=== PATIENT | female | born 1970 | race Two or more races ===

== ENCOUNTER 2019-12-21 08:37 | Inpatient (IN) | payer OTHER ==
[~2019-12-21] VITALS: Ht 154.9 cm; Wt 84.8 kg
[2019-12-21] VITALS (15 sets, daily range): BP systolic 120–150; BP diastolic 62–85
[~2019-12-21 08:37] MED LIST: ceFAZolin sod 2 GM in NS 55 ML IVPB ONE
--- NOTE | 2019-12-21 10:11 | Pre-Procedure Note/Attestation ---
Pre-Procedure Note/Attestation Complete Prior to Procedure Planned Procedure: not applicable Procedure Narrative: Cervical 56 artificial disc replacement Indications for Procedure Pre-Operative Diagnosis: C56 herniation Attestation I attest that I discussed the nature of the procedure; its benefits; risks and complications; and alternatives (and the risks and benefits of such alternatives ), prior to the procedure, with the patient (or the patient's legal construction representative). I attest that, if there was a reasonable possibility of needing a blood transfusion, the patient (or the patient's legal construction representative) was given the [facility] standardized written summary, pursuant to the Nick[place] Blood Safety Act ([place] Health and Safety Code # 1645, as amended). I attest that I re-evaluated the patient just prior to the surgery and that there has been no change in the patient's H&P, except as documented below: Ankush Correa MD Dec 21, 2019 10:11
--- NOTE | 2019-12-21 10:12 | Brief Operative Note ---
Immediate Post Operative Note Operative Note Chief Complaint: neck pain and radiculopathy Pre-op Diagnosis: C56 herniation Procedure: Cervical 56 artificial disc replacement Post-op Diagnosis: same as pre-op Findings: consistent w/pre-op dx studies Surgeon: Sunny Customer Service Voice: Martha Anesthesiologist: Gabriela Anesthesia: general Specimen: none Complications: none Condition: stable Fluids: IVF Estimated Blood Loss: none Drains: none Implant(s) used?: Yes - prodisc c sz 5 Ankush Correa MD Dec 21, 2019 10:12
[2019-12-21] MEDS ORDERED: HYDROmorphone 1mg/ml Carpuject IVP PRN (10:15)
[2019-12-21] MEDS ORDERED: Milk of Magnesia 30ml Ud ORAL PRN (10:15)
[2019-12-21] MEDS ORDERED: Morphine Sulfate 4mg/ml Inj (IV USE ONLY) IV PRN ×2 (10:15)
[2019-12-21] MEDS ORDERED: Chloraseptic Spray 20mL Bottle ORAL PRN (10:15)
[2019-12-21] MEDS ORDERED: HYDROcodone/Acetamin 7.5/325 tab ORAL PRN ×3 (10:15→11:00)
[2019-12-21] MEDS ORDERED: HYDROcodone/Acetamin 5/325 tab ORAL PRN ×2 (10:15→11:00)
[2019-12-21] MEDS ORDERED: Morphine Sulfate 2mg/ml Inj(IV/IM USE ONLY) IV PRN (10:15)
[2019-12-21] MEDS ORDERED: Naloxone 0.4mg/ml Inj IVP PRN (10:15)
[2019-12-21] MEDS ORDERED: Metoclopramide 10mg/2ml Inj IVP PRN (10:15)
[2019-12-21] MEDS ORDERED: LR 1000ml 1,000 ML IVLG SCH (10:58)
[2019-12-21] MEDS ORDERED: Meperidine 25mg/0.5ml Inj (FOR RIGORS ONLY) IV PRN (11:00)
[2019-12-21] MEDS ORDERED: Labetalol 5mg/ml 20ml vial IV PRN (11:00)
[2019-12-21] MEDS ORDERED: DiphenhydrAMINE 50mg/ml Inj IVP PRN (11:00)
[2019-12-21] MEDS ORDERED: Atropine Sulfate 0.4mg/ml inj IVP PRN (11:00)
[2019-12-21] MEDS ORDERED: oxyCODONE HCL/Acetaminophen 5/325mg ORAL PRN (11:00)
[2019-12-21] MEDS ORDERED: Midazolam 2mg/2ml Inj IVP PRN (11:00)
[2019-12-21] MEDS ORDERED: Ketorolac 30mg Inj IV PRN ×2 (11:00)
[2019-12-21] MEDS ORDERED: LORazepam Inj 2mg/ml 1ml IV PRN (11:00)
[2019-12-21] MEDS ORDERED: Acetaminophen (Non formulary) 100 ML IV ONE (11:00)
[2019-12-21] MEDS ORDERED: fentaNYL 100 mcg/2 mL IV PRN (11:00)
--- NOTE | 2019-12-21 11:01 | Anethesia Preoperative Eval ---
Anesthesia Pre-op PMH/ROS General Date of Evaluation: Dec 21, 2019 Time of Evaluation: 12:28 Anesthesiologist: Ovidio ASA Score: ASA 2 Mallampati Score Class I : Soft palate, uvula, fauces, pillars visible Class II: Soft palate, uvula, fauces visible Class III: Soft palate, base of uvula visible Class IV: Only hard plate visible Mallampati Classification: Class II Surgeon: Sunny Diagnosis: Neck Pain Surgical Procedure: ADR C5-6 Family History: no anesthesia problems Allergies: Coded Allergies: No Known Allergies (Unverified , 12/21/19) Medications: see eMAR Patient NPO?: Yes Past Medical History Cardiovascular: Reports: HTN Other: obesity - BMI 37 Anesthesia Pre-op Phys. Exam Physician Exam Last Vital Signs Date Time Temp Pulse Resp B/P (MAP) Pulse Ox O2 Delivery O2 Flow Rate FiO2 12/21/19 09:31 Room Air 12/21/19 09:30 98.1 87 18 140/85 (103) 96 Constitutional: NAD Neurologic: CN 2-12 intact Cardiovascular: RRR Respiratory: CTA Gastrointestinal: S/NT/ND Airway Exam Mallampati Score: Class II MO: full ROM: limited Teeth: missing, intact Anesthesia Pre-op A/P Risk Assessment & Plan Assessment: ASA 2 Plan: GA, SED, GlideScope Status Change Before Surgery: No Pre-Antibiotics Dru Grams Ancef IV Given Within 1 Hr of Incision: Yes Time Given: 13:01 Harry Ochoa MD Dec 21, 2019 11:01
[2019-12-21] MEDS ORDERED: fentaNYL 100 mcg/2 mL IV ONE (11:30)
[2019-12-21] MEDS ORDERED: Lidocaine 1% MPF 10mg/ml 5ml ONE (11:30)
[2019-12-21] MEDS ORDERED: Sodium Chloride 10ml vial INJ ONE (11:30)
[2019-12-21] MEDS ORDERED: Succinylcholine 20mg/ml 10ml vial ONE (12:20)
[2019-12-21] MEDS ORDERED: Sterile Water Irrig 1000ml IRRIG ONE (12:30)
[2019-12-21] MEDS ORDERED: NS Irrig 1000ml ONE (12:30)
[2019-12-21] MEDS ORDERED: propofoL 1,000mg/100ml IV ONE (12:30)
[2019-12-21] MEDS ORDERED: LR 1000ml ONE (12:30)
[2019-12-21] MEDS ORDERED: Thrombin 5000 units TOPIC ONE (12:31)
[2019-12-21] MEDS ORDERED: Bacitracin 50000 Units Vial ONE (12:31)
[2019-12-21] MEDS ORDERED: Gelfoam Size TOPIC ONE (12:31)
--- NOTE | 2019-12-21 12:41 | Immediate Post-Op Evaluation ---
Immediate Post-Op Evalulation Immediate Post-Op Evalulation Procedure: ADR C5-6 Date of Evaluation: Dec 21, 2019 Time of Evaluation: 15:00 IV Fluids: 1000 LR Blood Products: 0 Estimated Blood Loss: 50 Urinary Output: 320 Blood Pressure Systolic: 130 Blood Pressure Diastolic: 68 Pulse Rate: 63 Respiratory Rate: 16 O2 Sat by Pulse Oximetry: 96 Temperature (Fahrenheit): 97.1 Pain Score (1-10): 2 Nausea: No Vomiting: No Complications 0 Patient Status: awake, reacts, patent, extubated, none Hydration Status: adequate Dru Grams Ancef IV Given Within 1 Hr of Incision: Yes Time Given: 13:01 Harry Ochoa MD Dec 21, 2019 12:41
--- NOTE | 2019-12-21 12:42 | 48 Hour Post Anesthesia Eval ---
Post Anesthesia Evaluation Procedure: ADR C5-6 Date of Evaluation: Dec 21, 2019 Time of Evaluation: 17:12 Blood Pressure Systolic: 128 0: 71 Pulse Rate: 64 Respiratory Rate: 18 Temperature (Fahrenheit): 98 O2 Sat by Pulse Oximetry: 97 Airway: patent Nausea: No Vomiting: No Pain Intensity: 2 Hydration Status: adequate Cardiopulmonary Status: Stable Mental Status/LOC: patient returned to baseline Follow-up Care/Observations: 0 Post-Anesthesia Complications: 0 Follow-up care needed: N/A Harry Ochoa MD Dec 21, 2019 12:42
[2019-12-21] MEDS ORDERED: Neostigmine 1mg/ml 10ml Inj ONE (14:13)
[2019-12-21] MEDS ORDERED: Glycopyrrolate 0.2mg/ml 1ml Vial ONE (14:13)
[2019-12-21] MEDS: Hydromorphone 0.5mg/0.5ml inj IVP PRN ×2 (14:57→15:05)
--- NOTE | 2019-12-21 15:34 | Diagnostic Imaging Report ---
XRAY C Spine 2-3v CLINICAL HISTORY: Neck pain. COMPARISON: None FINDINGS: Fluoroscopy independent procedure performed for cervical arthroplasty. 27.9 seconds of fluoroscopy time utilized by the ordering physician. Total cumulative dose is 3.75 mGy and 0.57349 Gy.cm2. Total of 4 spot images are obtained . IMPRESSION: FLUOROSCOPY GUIDED PROCEDURE.
--- NOTE | 2019-12-21 16:15 | NUR ---
NURSE NOTES: patient arrived to the unit s/p surgery in stable condition, pt sleeping but arousable to name calling no s/s of distress on Oxygen 2L via NC, family by the bed side. Received report from post op nurse Klaudia, pt tolerated procedure well , vitals stable WNL, T98 HR 67 RR18 BP 137/67 O2sat 98, dressing on the R neck is clean intact, no s/s of bleeding, pt able to wiggle her toes, bed in low locked position, side rails upX2 call light with in reach. verified belongings with nurse and patient, will continue with plan of care
[2019-12-21] MEDS: Docusate 100mg cap ORAL SCH (18:45)
[2019-12-21] MEDS: NS w/KCl 20mEq 1000ml 1,000 ML IV SCH (18:45)
--- NOTE | 2019-12-21 19:31 | NUR ---
HAND-OFF: Report given to Star LOGAN, pt stable .
--- NOTE | 2019-12-21 19:32 | NUR ---
Received pt awake,a&o x4,and verbal. pt is on nc 3L. No sob, fever,cough and pain at the moment. Iv is intact and asymptomatic. Bed in the lower position, locked and call light within reach. we will keep monitoring the pt. Addendum: 12/22/19 at 0715 by DEIDRE GAMBLE RN Discard the note above
--- NOTE | 2019-12-21 19:33 | NUR ---
NURSE NOTES: Received pt awake,a&o x4,and verbal. pt is on nc 3L. No sob, fever,cough and pain at the moment. Iv is intact and asymptomatic. Bed in the lower position, locked and call light within reach. we will keep monitoring the pt.
[2019-12-21] MEDS: ceFAZolin sod 1 GM in D5W 55 ML IV SCH (21:24)
[2019-12-22] VITALS: BP 132/66
--- NOTE | 2019-12-22 | Operative Note - Dictated ---
DATE OF OPERATION: 12/21/2019 SURGEON: Ankush Correa MD, Orthopaedic Spine Surgeon. FULL FASHIONED GARMENT KNITTER: IAN Marc. PREOPERATIVE DIAGNOSES: 1. Intractable neck pain. 2. Radiculopathy. 3. Herniation, C5-C6. 4. Neuroforaminal stenosis, C5-C6. 5. Stenosis. POSTOPERATIVE DIAGNOSES: 1. Intractable neck pain. 2. Radiculopathy. 3. Herniation, C5-C6. 4. Neuroforaminal stenosis, C5-C6. 5. Stenosis. PROCEDURE PERFORMED: 1. Anterior cervical diskectomy and artificial disc replacement of C5-C6 using a Synthes ProDisc C size 5 height. 2. Use of intraoperative microscope. 3. Motor-evoked potential monitoring. 4. Somatosensory-evoked potential monitoring. 5. Supervision and interpretation of fluoroscopy. COMPLICATIONS: None. ANESTHESIA: General. ESTIMATED BLOOD LOSS: Less than 100 mL. INDICATIONS FOR SURGERY: This patient is a 49-year-old female who has a history of . As of result of this, Priscila sustained intractable neck pain, radiculopathy, herniation at C5-C6, neuroforaminal stenosis at C5-C6, and stenosis. We tried a course of conservative management, but despite this course, there was still a significant component of persistent, recalcitrant neck pain and arm pain. The MRI demonstrated significant neuroforaminal compromise secondary to disc herniations at C5-C6. We had a long discussion with Priscila regarding the risks and benefits of surgery. Our discussion included, but was not limited to nonoperative management, chiropractic management, another epidural steroid injection as well definitive management in the form of surgery. We recommended an anterior cervical diskectomy and artificial disc replacement of C5-C6 as final definitive management. We reviewed the risks and benefits of surgery with Priscila. Our discussion included a comprehensive review of the clinical issues and the nature of the clinical decision. We reviewed the alternatives, including doing nothing. Priscila elected to proceed accordingly with anterior cervical diskectomy and artificial disc replacement of C5-C6. We had a long discussion regarding the risks, alternatives, and benefits of surgery. Our description of the risks included a discussion in person as well as a signed consent which detailed all pertinent risks from the procedure itself. Briefly, our discussion included but was not limited to infection, bleeding, pseudarthrosis, spinal cord injury, neurovascular injury, dural tear, CSF leak, neuropathy, paralysis, permanent weakness/drop foot/drop arm, paresthesias, blindness, palsy, and weakness. The patient understood there may be a need for a revision surgery or additional procedures. Approach-related complications including dysphonia, dysphagia, blindness, permanent vocal cord and neural injury, hematoma, swallowing and breathing difficulty. Medical complications were reviewed including liver, kidney, shock, cardiopulmonary failure, anesthesia complications including , swelling, damage to the musculature, larynx/voice injury or loss, esophagus/throat, trachea, blood vessels and muscles/muscular sprain and lungs/pneumothorax during this surgical procedure; injury to deeper structures may be temporary or permanent. After this review of risks, Priscila understood these and elected to proceed. A written and verbal consent was given. We discussed the pros and cons of all the alternatives. We discussed the uncertainties associated with the decision. Afterwards, I assessed Priscila's understanding and explored their preferences. All questions were answered and no guarantees were given. Medical clearance was obtained prior to surgery. INTRAOPERATIVE FINDINGS: C5-C6; the disc itself was soft and spongy. It was not dehydrated, dry, or crumbled. Upon inspection of the posterior longitudinal ligament, there was a radial tear approximately 10 degrees cephalad to caudad. I probed this tear and through which, I noted a tear along with disc herniation. This was a fragment of nucleus pulposus tissue, which was clearly encroaching the neural foramina and was posteriorly. This was resected with a combination of Deckers, Microsect curettes, Kerrison-1 and Kerrison-2 rongeurs until it allowed for complete and thorough decompression of the spinal cord and thecal sac as well as neural foraminal elements bilaterally. There was a significant degenerative neural foraminal stenosis, which was right-sided more than left-sided. DESCRIPTION OF PROCEDURE: Under the benefit of general endotracheal anesthesia and with the assistance of the entire operative team, the patient was moved from the rney onto the operative table in the supine position. The head was secured and carefully positioned appropriately. Bilateral arms were secured with Gel Pads and foam and all bony prominences were padded. For the bilateral lower extremities, SCD and KHUSHI hose were placed for DVT prophylaxis. A surgical timeout was called, which corroborated our planned procedure of anterior cervical diskectomy and artificial disc replacement of C5-C6. Preoperative antibiotics were administered within 30 minutes of the incision for antibiotic prophylaxis. Using lateral fluoroscopic radiography, the operative levels were delineated. Next, the wound was prepped and draped with chlorhexidine and sterile drapes. An incision was based on lateral fluoroscopy and we centered our incision at the C5-C6 interspace and next, using a standard Fernández-Paula anterior-based approach, the incision was taken down through the skin and subcutaneous tissues until the vertebral bodies and their corresponding disc spaces were visualized. A needle was placed into the interspace to confirm placement of the operative interspace and we performed the remainder of procedure under microscopic visualization. Next, using a bipolar and Bovie cautery to ensure meticulous hemostasis, the longus colli was mobilized bilaterally and retractors were placed deep to the longus colli bilaterally to address retraction. Next, we turned our attention to the radical anterior diskectomy. This was performed at C5-C6 first by using a 15 blade scalpel followed by narrow pituitaries and a Microsect 5-B curette was used to denude the endplate of all cartilaginous tissue. Next, using a BitLeap AM8 drill bit, the partial vertebrectomy was performed in a bwjt-sd-adzn and ljjkv-in-iqyma fashion, and ultimately the posterior uncinate joints bilaterally and posterior osteophytic lips and margins causing central and lateral impingement were carefully denuded until visualization of the posterior longitudinal ligament was possible. An endplate preparation was performed in the exact same fashion using an intervertebral recovery assistant, sequential distraction was obtained throughout the disk space. We saw a tear/rent in the PLL and this was carefully mobilized and dissected using a Microsect 1-B curette until we visualized a broad-based disk herniation with compression of the spinal cord as well as neural foramina, which was right-sided more than left-sided. This neuroforaminal compression was carefully resected using a Kerrison-1 and Kerrison-2 rongeurs until complete decompression of the spinal cord was visualized and complete decompression of the neural foramina and nerve root therein as well as the axilla and lateral margin of the nerve root was visualized and subsequently completely decompressed. The family was notified at one-hour intervals throughout the procedure to provide for consistent updates. We next turned our attention towards trialing our implant within the disc space. We initially tried size 5 and the ProDisc Cervical spacer fit well in regard to depth and width. This implant was opened and prepared. Next, under direct visualization, I confirmed excellent fit in respect to the anterior and posterior vertebral bodies, the uncinate joints, and in regard to toggle. Once satisfied with this placement on serial AP and lateral fluoroscopy, I turned my attention towards cutting our dejah. These were cut in the bones using a reciprocating drill and afterwards all free fragments of bone were irrigated. Next, FloSeal was placed into the interspace and the implant was inserted using fluoroscopic guidance. Next, the Synthes ProDisc C size 5 ADR was then carefully advanced and secured into the intervertebral space under direct visualization and with supervision of AP and lateral fluoroscopic views. After a finger sweep, we confirmed removal of all sponges. The retractor was removed and we next turned our attention to meticulous hemostasis with FloSeal and bipolar cautery. After the sponge and needle count was again found to be correct with our second count, we next turned our attention to closure. The wound was again copiously irrigated with antibiotic-impregnated saline. Closure consisted of 4-0 clear nylon for the platysma and 6-0 clear nylon for the superficial skin. Final skin closure and dressings consisted of Dermabond. Prior to final closure, a final radiograph was obtained which demonstrated the hardware was intact with excellent position throughout. The patient tolerated the procedure well. The patient was carefully extubated after the conclusion of surgery. We discussed the findings of the surgery with the family upon completion of the case. At this point, the patient was transferred to the spine floor for further observation. Ankush Correa M.D. DR: Lalito JOB#: [id number] CC:
[2019-12-22] MEDS: NS w/KCl 20mEq 1000ml 1,000 ML IV SCH (03:15)
[2019-12-22 04:00] VITALS: BP 126/66
[2019-12-22] MEDS: ceFAZolin sod 1 GM in D5W 55 ML IV SCH (05:20)
--- NOTE | 2019-12-22 07:05 | NUR ---
HAND-OFF: Report given to DESMOND fink.
--- NOTE | 2019-12-22 07:43 | NUR ---
NURSE NOTES: Received report from Star RN, pt remains stable s/p surgery, rounds made pt wake and having breakfast with no s/s of distress on RA , pt c/o pain 09/03, will provide medication as ordered , pt has R AC 18 G with IVF, patent asymptomatic , bed in low locked position side rails upX2, call light with in reach, will continue with plan of care
[2019-12-22 08:00] VITALS: BP 120/65
[2019-12-22] MEDS: Docusate 100mg cap ORAL SCH (08:33)
--- NOTE | 2019-12-22 09:36 | General Progress Note ---
Assessment/Plan Assessment/Plan: neck pain and radiculopathy C56 herniation Cervical 56 artificial disc replacement PLAN 1. incentive spirometry 2. SCD 3. PT evaluation and therapy 4. Hydration 5. Pain management 6. discharge once stable with outpatient follow up Subjective Allergies: Coded Allergies: No Known Allergies (Unverified , 12/21/19) Subjective asked to follow up postop Objective Last 24 Hour Vital Signs Date Time Temp Pulse Resp B/P (MAP) Pulse Ox O2 Delivery O2 Flow Rate FiO2 12/22/19 04:00 98.2 78 19 126/66 (86) 96 12/22/19 00:00 98.2 71 19 132/66 (88) 97 12/21/19 21:00 Nasal Cannula 3.0 12/21/19 20:00 97.9 73 18 120/67 (84) 98 12/21/19 18:45 98.1 77 18 134/65 (88) 98 12/21/19 17:45 98.1 76 19 135/75 (95) 100 12/21/19 17:45 Nasal Cannula 3.0 12/21/19 16:45 98.0 72 20 140/82 (101) 98 12/21/19 16:15 98.1 67 18 137/67 (90) 98 12/21/19 16:10 97.3 77 21 127/62 99 Nasal Cannula 3 12/21/19 15:55 66 15 129/74 99 Nasal Cannula 3 12/21/19 15:40 67 12 130/66 99 Nasal Cannula 3 12/21/19 15:35 97.2 12/21/19 15:35 97.2 12/21/19 15:35 97.2 12/21/19 15:25 65 12 130/73 99 Nasal Cannula 3 12/21/19 15:10 62 12 137/63 99 Simple Mask 6 12/21/19 15:00 64 12 137/64 100 Simple Mask 6 12/21/19 14:50 68 12 150/74 100 Simple Mask 6 12/21/19 14:45 70 23 142/74 99 Simple Mask 6 12/21/19 14:44 64 18 97 12/21/19 14:43 63 16 96 12/21/19 14:42 97.1 62 20 130/68 96 Simple Mask 6 Intake and Output 12/21/19 12/22/19 19:00 07:00 Intake Total 1300 ml 1670 ml Output Total 350 ml Balance 950 ml 1670 ml Intake Oral 100 ml 250 ml IV Total 1200 ml 1420 ml Output Urine Total 300 ml Estimated Blood Loss 50 ml # Voids 1 2 Height (Feet): 5 Height (Inches): 1.00 Weight (Pounds): 187 Objective WDWN NAD clear breath sounds bilaterally without rhonchi or wheeze [id number] without MRG NABS nontender no HSM no CCE nonfocal Darien Gaines MD Dec 22, 2019 09:35
--- NOTE | 2019-12-22 10:08 | NUR ---
NURSE NOTES: Seen and evaluated by and ok to discharge patient today. Order noted and carried out.
[2019-12-22] MEDS ORDERED: NORCO 10-325 T1 EACH ORAL (10:47)
[2019-12-22] MEDS ORDERED: CYCLOBENZAPRINE10 MG ORAL (10:50)
--- NOTE | 2019-12-22 11:15 | NUR ---
NURSE NOTES: Pt discharged, in stable condition. T 98.1 BP 122/70 P 74 O2sat 97 at RA, RR 19 denies any pain, family by the bed side , pt belongings verified and signed, prescription given to pt, remove pt iv and escorted pt with family to the front entrance of the ER
--- NOTE | 2019-12-22 13:13 | NUR ---
CASE MANAGEMENT: INITIAL REVIEW 12/21/2019 49 YO F PRESENTED TO HOSPITAL FROM HOME CC: neck pain and radiculopathy PMHx; SI:HERNIATED NUCLEUS PULPOSUS VS: T 98.1 HR 87 RR 18 B/P 140/85 SATS 96% ON RA LABS: NONE IS:OR MEDS PATIENT ADMITTED TO MED/SURG 12/21/2019 @ 1012 DCP: HOME PLAN OF CARE: PREOPERATIVE DIAGNOSES: 1. Intractable neck pain. 2. Radiculopathy. 3. Herniation, C5-C6. 4. Neuroforaminal stenosis, C5-C6. 5. Stenosis. POSTOPERATIVE DIAGNOSES: 1. Intractable neck pain. 2. Radiculopathy. 3. Herniation, C5-C6. 4. Neuroforaminal stenosis, C5-C6. 5. Stenosis. PROCEDURE PERFORMED: 1. Anterior cervical diskectomy and artificial disc replacement of C5-C6 using a Synthes ProDisc C size 5 height. 2. Use of intraoperative microscope. 3. Motor-evoked potential monitoring. 4. Somatosensory-evoked potential monitoring. 5. Supervision and interpretation of fluoroscopy. CONCURRENT REVIEW FOR 12/22/2019 PT DISCHARGED TO HOME INTERQUAL MET
--- NOTE | 2019-12-24 18:53 | Diagnostic Imaging Report ---
XRAY C Spine 2-3v CLINICAL HISTORY: Neck pain. COMPARISON: None FINDINGS: Fluoroscopy independent procedure performed for cervical arthroplasty. 27.9 seconds of fluoroscopy time utilized by the ordering physician. Total cumulative dose is 3.75 mGy and 0.30808 Gy.cm2. Total of 4 spot images are obtained . IMPRESSION: FLUOROSCOPY GUIDED PROCEDURE.
--- NOTE | 2019-12-24 19:27 | Discharge Summary ---
Discharge Summary Hospital Course Date of Admission Dec 21, 2019 at 08:37 Date of Discharge Dec 22, 2019 at 11:15 Admitting Diagnosis neck pain, radiculopathy, herniated disc Reason for Hospitalization: elective surgery HPI Priscila Harrison is a 49 year old female who was admitted on Dec 21, 2019 at 08:37 for Herniated Nucleus Pulposus, Pain, Radiculopathy. Patient was admitted for elective surgery. Consultations Dr Gaines -IM/pulmo Procedures s/p 12/[address] Correa 1. Anterior cervical diskectomy and artificial disc replacement of C5-C6 using a Synthes ProDisc C size 5 height. 2. Use of intraoperative microscope. 3. Motor-evoked potential monitoring. 4. Somatosensory-evoked potential monitoring. 5. Supervision and interpretation of fluoroscopy. Hospital Course status post surgery course of recovery was uneventful initially IV fluids s/p perioperative antibiotic neurovascular status closely monitored and remained stable incision clean, dry and intact pain management was addressed pain was controlled remained hemodynamically stable ambulated with PT fall precautions maintained; safe for ambulation use of incentive spirometry was encouraged while in the bed Chloraseptic lozenges and spray provided for comfort tolerated diet , IV fluids discontinued GI prophylaxis provided antiemetics were on board as needed voided freely bowel regimen instituted patient was stable for discharge discharge instructions provided follow up with surgeon in the office as advised FINAL DIAGNOSES 1. Intractable neck pain. 2. Radiculopathy. 3. Herniation, C5-C6. 4. Neuroforaminal stenosis, C5-C6. 5. Stenosis. 6. s/p 12/20 Cervical 56 artificial disc replacement Discharge Medications Continued Medications: Cyclobenzaprine Hcl* (Flexeril*) 10 Mg Tablet 10 MG ORAL TWICE A DAY for muscle cramping, #90 TAB (This prescription has been renewed) Hydrocodone Bit/Acetaminophen 10-325* ([place] 10-325*) 1 Each Tablet 1 TAB ORAL Q8HR PRN for For Pain, #90 TAB 0 Refills (This prescription has been renewed) PRN PAIN Discharge Condition Upon Discharge: stable Discharge Vital Signs Last Vital Signs Date Time Temp Pulse Resp B/P (MAP) Pulse Ox O2 Delivery O2 Flow Rate FiO2 12/22/19 09:00 Nasal Cannula 3.0 12/22/19 08:00 98.2 74 20 120/65 (83) 97 Discharge Disposition Patient was discharged home Discharge Instructions Discharge Instructions Special Instructions I have been assigned to complete a D/C Summary on this account. I was not involved in the patient management Ana Lowe NP Dec 24, 2019 19:27
== END 2019-12-22 11:15 | disposition home or self-care (01) | DRG 518 ==
LOC: SDSOVERFLO 08:37 → 3E 16:12
PROC: 0RR30JZ Replacement of Cervical Vertebral Disc with Synthetic Substitute, Open Approach (ICD-10-PCS; principal; 2019-12-21 11:30)
DX: M50.122 Cervical disc disorder at C5-C6 level with radiculopathy (principal); V49.9XXS Car occupant (driver) (passenger) injured in unspecified traffic accident, sequela; M48.02 Spinal stenosis, cervical region
CPT/HCPCS: 36415; 72040; 76000; 86850; 86900; 86901; 87081; 94003; 94150; J2180; J2405; J2710